=== PATIENT | male | born 2005 | race Caucasian/White ===

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

== ENCOUNTER 2025-06-18 16:34 | Emergency (ER) | payer OTHER | END 2025-06-18 18:15 | disposition home or self-care (01) | LOC: ERS 16:34 | DX: S89.91XA Unspecified injury of right lower leg, initial encounter (principal); M25.561 Pain in right knee; M25.461 Effusion, right knee; X50.1XXA Overexertion from prolonged static or awkward postures, initial encounter; Y93.39 Activity, other involving climbing, rappelling and jumping off | CPT/HCPCS: 99283 ==

== ENCOUNTER 2025-06-22 15:06 | Emergency (ER) | payer OTHER, SELFPAY | END 2025-06-22 15:45 | disposition home or self-care (01) | LOC: ERS 15:06 | DX: M25.561 Pain in right knee (principal); F17.290 Nicotine dependence, other tobacco product, uncomplicated | CPT/HCPCS: 99282 ==